=== PATIENT | female | born 1960 | race African-American/Black ===

== ENCOUNTER 2024-10-22 09:53 | Inpatient (IN) | payer OTHER ==
[2024-10-22 10:52] LABS: HEMATOCRIT 24.9 % (34.1-44.9); HEMOGLOBIN 8.1 g/dL (11.2-15.7); MCHC 32.5 g/dl (32.2-35.5); MEAN CELL VOLUME 92.9 fl (79.4-94.8); MEAN PLT VOLUME 10.4 fl (9.4-12.3); PLATELET COUNT 218 x10^3/uL (182-369); RDW 13.9 % (12.4-16.4)
[2024-10-22 11:26] LABS: POTASSIUM 3.3 mmol/L (3.5-5.1)
[2024-10-22 11:28] LABS: ALBUMIN 3.5 g/dl (3.4-5.0); CALCIUM 8.5 mg/dL (8.5-10.1)
[2024-10-22 11:29] LABS: BLOOD UREA NITROGEN 90.8 mg/dL (7-18)
[2024-10-22 11:32] LABS: CREATININE 6.5 mg/dL (0.55-1.3)
[2024-10-22 11:33] LABS: BILIRUBIN,TOTAL 0.5 mg/dL (0.2-1); TOT PROT 7.9 g/dl (6.4-8.2)
[2024-10-22 12:41] LABS: CHLORIDE 106 mmol/L (98-107); SODIUM 142 mmol/L (136-145)
[2024-10-22 12:42] LABS: CALCIUM 8.5 mg/dL (8.5-10.1)
[2024-10-22 12:43] LABS: BLOOD UREA NITROGEN 92.9 mg/dL (7-18); CO2 24 mmol/L (21-32); GLUCOSE,RANDOM 93 mg/dL (74-106); MAGNESIUM 1.5 mg/dL (1.8-2.4)
[2024-10-22 12:46] LABS: CREATININE 6.5 mg/dL (0.55-1.3)
[2024-10-22 12:47] LABS: ANION GAP 11 mmol/L (4-13); POTASSIUM 2.3 mmol/L (3.5-5.1)
[2024-10-22] MEDS: POTASSIUM CHLORIDE ORAL LIQUID 20 MEQ/15 ML PO ONE (13:10)
[2024-10-22] MEDS ORDERED: POTASSIUM CHLORIDE ORAL LIQUID 20 MEQ/15 ML ONE (13:32)
[2024-10-22] MEDS ORDERED: MAGNESIUM 1GM/D5W - 1 GM/100 ML IVPB IVPB ONE (13:32)
[2024-10-22] MEDS ORDERED: KCL 10 MEQ IVPB 10 MEQ/100 ML INFUS.BAG IVPB ONE ×2 (13:32→16:15)
[2024-10-22] MEDS: MAGNESIUM 1GM/D5W - 1 GM/100 ML IVPB IVPB ONE (13:42)
[2024-10-22] MEDS: KCL 10 MEQ IVPB 10 MEQ/100 ML INFUS.BAG IVPB SCH (15:04)
[2024-10-22 18:41] VITALS: BMI 37.5
[2024-10-22] MEDS: SODIUM CHLORIDE 0.45%/POT 20 MEQ/1,000 ML INFUS.BAG IV SCH (21:18)
[2024-10-23 06:45] LABS: ABSOLUTE IMMATURE GRANULOCYTES 0.08 x10^3/uL (0.0-0.031); BASOPHILS # 0.03 x10^3/uL (0.01-0.08); EOSINOPHIL % 2.2 % (0.7-5.8); EOSINOPHILS # 0.29 x10^3/uL (0.04-0.36); HEMATOCRIT 24.4 % (34.1-44.9); HEMOGLOBIN 7.8 g/dL (11.2-15.7); MEAN CELL VOLUME 93.8 fl (79.4-94.8); MEAN PLT VOLUME 10.7 fl (9.4-12.3); MONOCYTE # 0.65 x10^3/uL (0.24-0.86); MONOCYTE % 4.9 % (4.7-12.5); PLATELET COUNT 220 x10^3/uL (182-369); RDW 14.3 % (12.4-16.4)
[2024-10-23 06:51] LABS: CHLORIDE 106 mmol/L (98-107); SODIUM 141 mmol/L (136-145)
[2024-10-23 06:54] LABS: BLOOD UREA NITROGEN 92.1 mg/dL (7-18); CALCIUM 8.1 mg/dL (8.5-10.1); CO2 24 mmol/L (21-32); GLUCOSE,RANDOM 75 mg/dL (74-106); MAGNESIUM 1.5 mg/dL (1.8-2.4)
[2024-10-23 06:55] LABS: ALBUMIN 3.3 g/dl (3.4-5.0)
[2024-10-23 06:57] LABS: CREATININE 6.5 mg/dL (0.55-1.3); SGOT/AST 31 U/L (15-37); SGPT/ALT 32 U/L (13-61)
[2024-10-23 06:58] LABS: ANION GAP 10 mmol/L (4-13); BILIRUBIN,TOTAL 0.5 mg/dL (0.2-1); PHOSPHOROUS 5.4 mg/dL (2.5-4.9); POTASSIUM 2.6 mmol/L (3.5-5.1); TOT PROT 7.4 g/dl (6.4-8.2)
[2024-10-23 07:00] LABS: ALK PHOS 124 U/L (45-117)
[2024-10-23] MEDS: POTASSIUM CHLORIDE ORAL LIQUID 20 MEQ/15 ML PO ONE ×2 (07:53→18:38)
[2024-10-23] MEDS: MAGNESIUM 2GM/50ML STERILE WATER IVPB IVPB ONE ×2 (07:55→21:05)
[2024-10-23] MEDS: KCL 10 MEQ IVPB 10 MEQ/100 ML INFUS.BAG IVPB SCH (07:55)
[2024-10-23] MEDS: amLODIPine BESYLATE 5 MG TABLET (FP) PO SCH (09:19)
[2024-10-23 11:12] LABS: EPI CELLS >36 /uL (0-25.1); HYALINE CASTS 0 /uL (0-3.1); URINE APPEARANCE CLEAR; URINE BACTERIA 2713 /uL (0-1359); URINE BILIRUBIN NEGATIVE (NEGATIVE); URINE COLOR YELLOW; URINE GLUCOSE (UA) NEGATIVE (NEGATIVE); URINE KETONE NEGATIVE (NEGATIVE); URINE LEUK ESTERASE NEGATIVE (NEGATIVE); URINE NITRITE NEGATIVE (NEGATIVE); URINE PROTEIN 2+ (NEGATIVE); URINE RBC 28 /uL (0-23.9); URINE UROBILINOGEN 0.2 mg/dL (0.2-1.0); URINE WBC 19 /uL (0-25.8)
[2024-10-23] MEDS ORDERED: clonazePAM 0.5 MG TABLET PO PRN (21:58)
[2024-10-23] MEDS ORDERED: LABETALOL HCL 200 MG TABLET (FP) PO SCH (22:00)
[2024-10-23] MEDS: LABETALOL HCL 200 MG TABLET (FP) PO SCH (22:35)
[2024-10-23] MEDS: ATORVASTATIN CA 80 MG TABLET (FP) PO SCH (22:35)
[2024-10-24] MEDS: INSULIN ASPART SLIDING SCALE (NOVOLOG) 1 VIAL SQ SCH (06:20)
[2024-10-24 06:50] LABS: ABSOLUTE IMMATURE GRANULOCYTES 0.06 x10^3/uL (0.0-0.031); BASOPHILS # 0.03 x10^3/uL (0.01-0.08); EOSINOPHIL % 2.2 % (0.7-5.8); EOSINOPHILS # 0.26 x10^3/uL (0.04-0.36); HEMATOCRIT 24.6 % (34.1-44.9); HEMOGLOBIN 7.9 g/dL (11.2-15.7); MCHC 32.1 g/dl (32.2-35.5); MEAN CELL VOLUME 92.8 fl (79.4-94.8); MEAN PLT VOLUME 10.5 fl (9.4-12.3); PLATELET COUNT 219 x10^3/uL (182-369); RDW 14.3 % (12.4-16.4)
[2024-10-24 07:14] LABS: CHLORIDE 107 mmol/L (98-107); SODIUM 140 mmol/L (136-145)
[2024-10-24 07:21] LABS: BLOOD UREA NITROGEN 85.4 mg/dL (7-18); CALCIUM 8.7 mg/dL (8.5-10.1); CO2 23 mmol/L (21-32); GLUCOSE,RANDOM 124 mg/dL (74-106)
[2024-10-24 07:25] LABS: CREATININE 6.2 mg/dL (0.55-1.3)
[2024-10-24 07:26] LABS: ANION GAP 10 mmol/L (4-13); POTASSIUM 2.8 mmol/L (3.5-5.1)
[2024-10-24 09:27] LABS: MAGNESIUM 2.6 mg/dL (1.8-2.4)
[2024-10-24] MEDS: IRON SUCROSE INJECTION 200 MG in SODIUM CHLORIDE 100 ML IVPB ONE (09:35)
[2024-10-24] MEDS: SERTRALINE HCL 50 MG TABLET (FP) PO SCH (09:35)
[2024-10-24] MEDS ORDERED: ACETAMINOPHEN 325 MG TABLET (FP) PO PRN (09:46)
[2024-10-24] MEDS ORDERED: SERTRALINE HCL 50 MG TABLET (FP) PO SCH (10:00)
[2024-10-24] MEDS: POTASSIUM CHLORIDE TABS 20 MEQ TABLET.ER (FP) PO ONE (10:00)
[2024-10-24] MEDS: ACETAMINOPHEN 500 MG TABLET (FP) PO PRN (10:25)
[2024-10-24] MEDS: ARIPiprazole 10 MG TABLET PO SCH (10:27)
[2024-10-24] MEDS: INSULIN GLARGINE (LANTUS) 100 UNITS/ML UNITS SQ SCH (22:06)
[2024-10-25 16:30] LABS: POTASSIUM 3.1 mmol/L (3.5-5.1)
[2024-10-25 16:31] LABS: BLOOD UREA NITROGEN 94.1 mg/dL (7-18); CALCIUM 9.1 mg/dL (8.5-10.1)
[2024-10-25 16:35] LABS: CREATININE 6.2 mg/dL (0.55-1.3)
[2024-10-25] MEDS: POTASSIUM CHLORIDE TABS 20 MEQ TABLET.ER (FP) PO ONE (18:56)
[2024-10-26 08:06] LABS: BLOOD UREA NITROGEN 91.2 mg/dL (7-18); CALCIUM 8.7 mg/dL (8.5-10.1)
[2024-10-26 08:10] LABS: CREATININE 6.3 mg/dL (0.55-1.3)
[2024-10-26] MEDS: POTASSIUM CHLORIDE ORAL LIQUID 20 MEQ/15 ML PO ONE ×2 (09:31→21:25)
[2024-10-26] MEDS: KCL 10 MEQ IVPB 10 MEQ/100 ML INFUS.BAG IVPB SCH (17:00)
[2024-10-27 07:50] LABS: POTASSIUM 3.4 mmol/L (3.5-5.1)
[2024-10-27 08:03] LABS: BLOOD UREA NITROGEN 88.9 mg/dL (7-18)
[2024-10-27 08:04] LABS: ALBUMIN 3.4 g/dl (3.4-5.0); CALCIUM 8.9 mg/dL (8.5-10.1)
[2024-10-27 08:06] LABS: CREATININE 6.1 mg/dL (0.55-1.3)
[2024-10-27 08:08] LABS: BILIRUBIN,TOTAL 0.8 mg/dL (0.2-1); TOT PROT 7.7 g/dl (6.4-8.2)
[2024-10-27 09:07] LABS: ABSOLUTE IMMATURE GRANULOCYTES 0.06 x10^3/uL (0.0-0.031); BASOPHILS # 0.05 x10^3/uL (0.01-0.08); EOSINOPHIL % 2.7 % (0.7-5.8); EOSINOPHILS # 0.32 x10^3/uL (0.04-0.36); HEMATOCRIT 25.1 % (34.1-44.9); MCHC 31.9 g/dl (32.2-35.5); MEAN CELL VOLUME 95.4 fl (79.4-94.8); MONOCYTE # 0.62 x10^3/uL (0.24-0.86); MONOCYTE % 5.2 % (4.7-12.5); PLATELET COUNT 226 x10^3/uL (182-369); RDW 14.6 % (12.4-16.4)
[2024-10-27] MEDS: PANTOPRAZOLE 40 MG TABLET PO SCH (09:43)
[2024-10-27] MEDS: NIFEdipine E.R 60 MG TABLET PO SCH (09:43)
[2024-10-27] MEDS ORDERED: NIFEdipine E.R 60 MG TABLET PO SCH (10:00)
[2024-10-27] MEDS: KCL 10 MEQ IVPB 10 MEQ/100 ML INFUS.BAG IVPB SCH (17:38)
[2024-10-27] MEDS: POTASSIUM CHLORIDE ORAL LIQUID 20 MEQ/15 ML PO ONE (17:38)
[2024-10-28] MEDS: ceFAZolin SODIUM 1 GM VIAL IVPB ONE
[2024-10-28] MEDS ORDERED: PAPAVERINE HCL 30 MG/1 ML 10 ML VIAL NR ONE (11:25)
[2024-10-28] MEDS ORDERED: MIDAZOLAM HCL 2 MG/2 ML SINGLE DOSE VIAL ONE (12:01)
[2024-10-28] MEDS ORDERED: PROPOFOL 20 ML ONE (12:01)
[2024-10-28] MEDS ORDERED: DEXMEDETOMIDINE HCL 200 MCG/2 ML IVPB ONE (12:09)
[2024-10-28] MEDS: LIDOCAINE HCL 1%, 10 MG/ML (50 mL VIAL) INF ONE ×3 (12:14)
[2024-10-28] MEDS: CLINDAMYCIN 600 MG PREMIX BAG IVPB ONE (12:15)
[2024-10-28] MEDS ORDERED: ONDANSETRON 4 MG/2 ML VIAL IVPUSH PRN ×2 (13:13→13:41)
[2024-10-28] MEDS ORDERED: oxyCODONE HCL 5 MG TABLET PO PRN (13:13)
[2024-10-28] MEDS ORDERED: SODIUM CHLORIDE 1,000 ML IV SCH ×2 (13:15→13:41)
[2024-10-28 15:22] LABS: POTASSIUM 3.6 mmol/L (3.5-5.1)
[2024-10-28 15:25] LABS: ALBUMIN 3.3 g/dl (3.4-5.0); CALCIUM 8.6 mg/dL (8.5-10.1)
[2024-10-28 15:26] LABS: BLOOD UREA NITROGEN 89.8 mg/dL (7-18)
[2024-10-28] MEDS: LABETALOL HCL 200 MG TABLET (FP) PO SCH (16:30)
[2024-10-28] MEDS: ACETAMINOPHEN 500 MG TABLET (FP) PO PRN (16:49)
[2024-10-28] MEDS: INSULIN ASPART SLIDING SCALE (NOVOLOG) 1 VIAL SQ SCH (17:02)
[2024-10-28 18:14] VITALS: RESP 18
[2024-10-28 18:21] LABS: BILIRUBIN,TOTAL 0.5 mg/dL (0.2-1); TOT PROT 7.2 g/dl (6.4-8.2)
[2024-10-28] MEDS: NIFEdipine E.R 60 MG TABLET PO SCH (21:37)
[2024-10-28] MEDS: INSULIN GLARGINE (LANTUS) 100 UNITS/ML UNITS SQ SCH (21:38)
[2024-10-28] MEDS: ATORVASTATIN CA 80 MG TABLET (FP) PO SCH (21:38)
[2024-10-28] MEDS: oxyCODONE HCL 5 MG TABLET PO PRN (21:45)
[2024-10-28] MEDS ORDERED: POTASSIUM CHLORIDE ORAL LIQUID 20 MEQ/15 ML PO ONE (22:00)
[2024-10-29 08:08] LABS: POTASSIUM 3.6 mmol/L (3.5-5.1)
[2024-10-29 08:15] LABS: ALBUMIN 3.4 g/dl (3.4-5.0); BLOOD UREA NITROGEN 91.2 mg/dL (7-18); CALCIUM 8.6 mg/dL (8.5-10.1)
[2024-10-29 08:18] LABS: BILIRUBIN,TOTAL 0.4 mg/dL (0.2-1); TOT PROT 7.3 g/dl (6.4-8.2)
[2024-10-29] MEDS ORDERED: MECLIZINE HCL 12.5 MG TABLET PO PRN (09:26)
[2024-10-29] MEDS: SERTRALINE HCL 50 MG TABLET (FP) PO SCH (09:33)
[2024-10-29] MEDS: ARIPiprazole 10 MG TABLET PO SCH (09:33)
[2024-10-29] MEDS: PANTOPRAZOLE 40 MG TABLET PO SCH (09:33)
[2024-10-29 09:35] VITALS: BP 124/66; PULSE 74; TEMP 97.5
== END 2024-10-29 10:12 | disposition home or self-care (01) | DRG 675 ==
LOC: JER 09:53 → JERBED 13:03 → UNDOADMIN 15:43 → JERBED 15:43 → J4W 17:20
PROVIDERS: ADMIT Internal Medicine; ATTEND Internal Medicine
DX: I12.0 Hypertensive chronic kidney disease with stage 5 chronic kidney disease or end stage renal disease (principal); N18.5 Chronic kidney disease, stage 5; E11.22 Type 2 diabetes mellitus with diabetic chronic kidney disease; I25.10 Atherosclerotic heart disease of native coronary artery without angina pectoris; E87.6 Hypokalemia; F32.A Depression, unspecified; E66.9 Obesity, unspecified; Z68.37 Body mass index [BMI] 37.0-37.9, adult; N28.1 Cyst of kidney, acquired; D64.9 Anemia, unspecified; I44.7 Left bundle-branch block, unspecified; R07.89 Other chest pain
CPT/HCPCS: 36415; 76775-TC; 76856-TC; 80048; 80053; 81003; 82570; 82728; 82962; 83540; 83550; 83735; 84100; 84156; 84443; 84466; 84484; 85025; 85027; 86850; 86900; 86901; 93005; 93010; 93306-TC; 93986; 94760; 97116-GP; 97162-GP; 99285-25; J1756; J3480